=== PATIENT | female | born 1970 | race Caucasian/White ===

== ENCOUNTER 2017-03-28 19:10 | Emergency (ER) | payer MEDICAID ==
[~2017-03-28] VITALS: Ht 157.5 cm; Wt 65.8 kg
[2017-03-28 19:12] VITALS: BP 119/92
--- NOTE | 2017-03-28 19:20 | NUR ---
AMBULATED TO ER BED 3
--- NOTE | 2017-03-28 19:23 | NUR ---
46 Y/O F W/C/O SEVER HEADACHE, NAUSEA AND NECK PAIN X 1 WK. PT STATES PAIN HAS GOTTEN WORSE DAY BY DAY AND STATES HAD A RASH ALL OVER 2 DAYS AGO BUT WENT AWAY. VSS, ER MD EVALUATING PT at bedside.
[2017-03-28] MEDS ORDERED: HYDROmorphone 1 MG/ML AMP IVP ONE (19:25)
[2017-03-28] MEDS ORDERED: ONDANSETRON 4 MG/2 ML VIAL IVP ONE (19:45)
[2017-03-28 19:46] LABS: BASOPHILS # (AUTO) 0.1 K/uL (0.00-0.22); BASOPHILS % (AUTO) 1.3 % (0.0-2.0); EOSINOPHILS # (AUTO) 0.1 K/uL (0-0.4); EOSINOPHILS % (AUTO) 0.9 % (0.0-4.0); HEMATOCRIT 39.7 % (36-48); HEMOGLOBIN 13.5 g/dL (12.0-16.0); LYMPHOCYTES # (AUTO) 2.1 K/uL (2.5-16.5); LYMPHOCYTES % (AUTO) 25.6 % (20.5-51.1); MEAN CORPUSCULAR HEMOGLOBIN 31 pg (27-31); MEAN CORPUSCULAR HGB CONC 34 g/dL (33-37); MEAN CORPUSCULAR VOLUME 90 fL (80-94); MONOCYTES % (AUTO) 12.5 % (1.7-9.3); NEUTROPHILS # (AUTO) 4.9 K/uL (1.8-7.7); NEUTROPHILS % (AUTO) 59.7 % (42.2-75.2); PLATELET COUNT (AUTO) 240 K/uL (140-450); RED BLOOD CELL COUNT(AUTO) 4.42 MIL/uL (4.20-5.40); RED CELL DISTRIBUTION WIDTH 12.1 % (11.6-13.7); WHITE BLOOD COUNT (AUTO) 8.2 K/uL (4.8-10.8)
[2017-03-28] MEDS ORDERED: ONDANSETRON 4 MG/2 ML VIAL ONE (19:49)
[2017-03-28 20:06] LABS: ANION GAP 10.5 (8-16); CALCIUM 8.7 mg/dL (8.5-10.1); CARBON DIOXIDE 27.2 mmol/L (21-32); CREATININE 0.8 mg/dL (0.6-1.3); POTASSIUM 3.7 mmol/L (3.5-5.1)
[2017-03-28 20:10] LABS: INR 1.1 (0.8-1.2); PARTIAL THROMBOPLASTIN TIME 24.9 secs (22-35.6); PROTHROMBIN TIME 10.7 secs (10.8-13.4)
[2017-03-28 20:11] LABS: ALBUMIN 4.1 g/dL (3.4-5.0); TOTAL BILIRUBIN 1.5 mg/dL (0.0-1.0); TOTAL PROTEIN, SERUM 8.3 g/dL (6.4-8.2)
[2017-03-28 20:29] LABS: LACTIC ACID 1.1 mmol/L (0.4-2.0)
--- NOTE | 2017-03-28 21:26 | NUR ---
PT RESTING IN BED, ON MONITOR, VSS. NO S/S OF DISTRESS NOTED AT THE MOMENT.
--- NOTE | 2017-03-28 21:40 | NUR ---
PT RESTING IN BED AWATING FOR RESULTS. NO S/S OF DISTRESS NOTED UP TO THIS POINT.
[2017-03-28 22:00] VITALS: BP 115/73
--- NOTE | 2017-03-28 22:00 | NUR ---
Patient discharged with v/s stable. Written and verbal after care instructions given and explained. Patient alert, oriented and verbalized understanding of instructions. Ambulatory with steady gait. All questions addressed prior to discharge. ID band removed. Patient advised to follow up with PMD OR RETURN TO ER IF CONDITION WORSENS. Rx of FIORICET given. Patient educated on indication of medication including possible reaction and side effects. Opportunity to ask questions provided and answered.
== END 2017-03-28 22:00 | disposition home or self-care (01) ==
LOC: MED 19:10
DX: R51 Headache (principal); Z90.710 Acquired absence of both cervix and uterus
CPT/HCPCS: 36415; 70450; 80053; 83605; 85025; 85610; 85730; 96374; 96375; 99285; J1170; J2405